=== PATIENT | female | born 1935 | race Caucasian/White ===

== ENCOUNTER 2016-10-09 18:20 | Emergency (ER) | payer MEDICARE, OTHER | END 2016-10-09 22:17 | disposition home or self-care (01) | LOC: FER 18:20 | DX: T78.40XA Allergy, unspecified, initial encounter (principal); E11.9 Type 2 diabetes mellitus without complications; I10 Essential (primary) hypertension; E78.5 Hyperlipidemia, unspecified; Z88.5 Allergy status to narcotic agent; Z88.8 Allergy status to other drugs, medicaments and biological substances; Z88.6 Allergy status to analgesic agent; Z79.84 Long term (current) use of oral hypoglycemic drugs | CPT/HCPCS: J2930 ==

== ENCOUNTER 2021-03-28 11:50 | Emergency (ER) | payer MEDICARE, OTHER ==
[~2021-03-28 11:50] MED LIST: CITALOPRAM HBR20 MG PO; K-DUR20 MEQ PO; LORAZEPAM 0.5M0.5 MG PO; MECLIZINE 25MG25 MG PO; METOPROLOL SUCC25 MG PO; SIMVASTATIN40 MG PO
[2021-03-28 13:27] LABS: CORONAVIRUS 2019 SARS-COV-2 POSITIVE (NEGATIVE); INFLUENZA A NAA NEGATIVE (NEGATIVE)
== END 2021-03-28 16:45 | disposition home or self-care (01) ==
LOC: FER 11:50
PROVIDERS: Emergency Medicine
DX: U07.1 COVID-19 (principal); I25.10 Atherosclerotic heart disease of native coronary artery without angina pectoris; E11.9 Type 2 diabetes mellitus without complications; Z23 Encounter for immunization; Z88.5 Allergy status to narcotic agent; Z88.8 Allergy status to other drugs, medicaments and biological substances
CPT/HCPCS: M0245; Q0245; U0002